=== PATIENT | female | born 1960 ===

== ENCOUNTER → 2017-04-17 | Outpatient (CLI) | payer OTHER ==
[2017-04-27 11:27] LABS: ANION GAP 17.9 mmol/L (8-16); BLOOD UREA NITROGEN 7 mg/dL (7-26); BUN/CREATININE RATIO 11 (6-25); CALCIUM 8.6 mg/dL (8.4-10.2); CARBON DIOXIDE 23 mmol/L (22-29); CHLORIDE 102 mmol/L (98-107); CREATININE, SERUM 0.64 mg/dL (0.57-1.11); EST GLOMERULAR FILTRATION RATE > 60 ML/MIN (60-); GLUCOSE 65 mg/dL (74-118); POTASSIUM 3.9 mmol/L (3.5-5.1); SODIUM 139 mmol/L (136-145)
[2017-04-27 11:28] LABS: HEMOGLOBIN 10.4 g/dL (12.0-16.0); MEAN CORPUSCULAR HEMOGLOBIN 24.4 pg (28-32); MEAN CORPUSCULAR HGB CONC 29.7 g/dL (31-35); MEAN CORPUSCULAR VOLUME 82.2 fL (81-99); PLATELET COUNT 181 x10e3/uL (140-360); RED BLOOD COUNT 4.26 x10e6/uL (3.6-5.1); RED CELL DISTRIBUTION WIDTH 22.2 % (11.7-14.4)
[2017-04-27 11:29] LABS: BASOPHILS % 0.2 % (0.0-1.0); EOSINOPHILS # (AUTO) 0.1 (0.0-0.4); EOSINOPHILS % 2.7 % (0.0-6.0); LYMPHOCYTES # (AUTO) 0.9 (1.0-3.2); LYMPHOCYTES % 16.8 % (18.0-39.1); MONOCYTES # (AUTO) 1.1 (0.2-0.8); MONOCYTES % 21.2 % (4.4-11.3); NEUTROPHILS % 58.1 % (38.7-80.0)
[2017-04-27 11:30] LABS: BAND NEUTROPHILS % (MANUAL) 1 %; EOSINOPHILS % (MANUAL) 4 % (0-7); HYPOCHROMASIA MODERATE; LYMPHOCYTES % (MANUAL) 18 % (19-48); METAMYELOCYTES % (MANUAL) 1 % (0-0); MONOCYTES % (MANUAL) 18 % (3.4-9.0); NEUTROPHILS % (MANUAL) 58 % (40-74); PLATELET ESTIMATE ADEQUATE
[2017-04-27 11:31] LABS: BURR CELLS MODERATE
== END ==
LOC: NPA 12:00
DX: E16.2 Hypoglycemia, unspecified (principal)
CPT/HCPCS: 36415; 80048; 85025